=== PATIENT | female | born 1940 | race Caucasian/White ===

== ENCOUNTER 2025-05-10 09:38 | Emergency (ER) | payer SELFPAY ==
[2025-05-10 09:48] VITALS: BP 153/64
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
[2025-05-10 11:53] VITALS: BMI 35.2
[2025-05-10] MEDS: MOTRIN 400 MG PO (12:37)
== END 2025-05-10 14:06 | disposition home or self-care (01) ==
LOC: EMR 09:38
PROVIDERS: EMERGENCY PHYSICIAN Emergency Medicine; FAMILY PHYSICIAN Internal Medicine
DX: S50.10XA Contusion of unspecified forearm, initial encounter (principal); S60.221A Contusion of right hand, initial encounter; V43.52XA Car driver injured in collision with other type car in traffic accident, initial encounter; Y92.410 Unspecified street and highway as the place of occurrence of the external cause; I10 Essential (primary) hypertension; E78.00 Pure hypercholesterolemia, unspecified
CPT/HCPCS: 99283; 29125; 73110